=== PATIENT | male | born 1990 | race Caucasian/White ===

== ENCOUNTER 2018-03-10 23:39 | Emergency (ER) | payer OTHER ==
[2018-03-10] MEDS ORDERED: 0.9 % SODIUM CHLORIDE 1,000 ML IV ONE (23:58)
--- NOTE | 2018-03-10 23:58 | ED Physician Documentation ---
Overdose - HISTORIAN Historian: patient - HPI Stated Complaint: possible overdose Chief Complaint: Overdose Onset: minutes (30) Duration: sudden onset Intent: suicide (for a split second he said he want to but is now regretful and angry with himself and does not want to and he states it was once instance and he over did it. ) Severity: mild Situational Problems: Yes (he states his gf might be cheating ) Further Comments: yes (He states he learned his gf might be cheating so he took "some tylenol and ibuprofen and drank a few beers and wine" He states he "for a split second wanted to " and states "I was instantly regretful about taking the meds" He is not sure how many he took. He states he drank the liquour on top of the meds to help himself vomit (which he did not vomit) He denies any symptoms currently "I feel normal" but states he is angry with himself for taking the pills. States he watched his mom attempt suicide a lot and is not wanting this for himself) - Associated Symptoms Symptoms: angry (about his actions he is upset over his gf) Suicidal: gesture, attempt. denies: suicidal thoughts, specific plan Ingestion: accidental (feels now he was not really trying to kill himself ) Mechanism: overdose - ROS CONST: none NEURO/PSYCH: depression (just over this situation tonight ) - PAST HX Psychiatric problems: denies: bipolar disorder, depression, prior suicide attempt DVT/PE Risk Factors: none, other (chronic back pain ) Surgical History: no surgical history Immunizations: UTD Allergies/Adverse Reactions: Allergies Allergy/AdvReac Type Severity Reaction Status Date / Time No Known Allergies Allergy Verified 03/11/18 00:16 Home Medications: Ambulatory Orders Medication Instructions Recorded NK [NK] 03/11/18 - Social HX Smoking History: cigarettes Marital Status: single Drug Use: none - Family HX Family HX: mental illness (mom ) - VITAL SIGNS Vital Signs: Vital Signs Temp Pulse Resp BP Pulse Ox 98 F 71 20 118/76 98 03/10/18 23:40 03/10/18 23:40 03/10/18 23:40 03/10/18 23:40 03/10/18 23:40 - REVIEWED ASSESSMENTS Nursing Assessment Reviewed: Yes Vitals Reviewed: Yes Progress - Progress Progress: 0300: Sleeping soundly - wakes easily. VS stable DG 0330: Labs drawn DG 0350: pt aware of results. He denies any complaints. Denies any GI upset, no dizziness, no nausea He is not suicidal. He does not wish self harm. He is no in need of further services. Poison Control aware DG ED Results Lab/Radiology - Lab Results Lab Results: Lab Results 03/11/18 03/11/18 03/11/18 03:38 00:09 00:09 WBC 8.50 K/ul K/ul (4.00-12.00) RBC 4.57 M/ul M/ul (3.90-5.20) Hgb 14.2 g/dL g/dL (12.0-18.0) Hct 42.2 % % (37.0-53.0) MCV 92.4 fl fl (80.0-100.0) MCH 31.2 pg pg (28.0-34.0) MCHC 33.7 g/dL g/dL (30.0-36.0) RDW 12.8 % % (11.3-14.3) Plt Count 254 K/mm3 K/mm3 (130-400) Neut % (Auto) 60.2 % % (39.0-79.0) Lymph % (Auto) 26.8 % % (16.0-50.0) [place]oke % (Auto) 6.6 % % (0.0-11.0) Eos % (Auto) 4.5 % % (0.0-6.8) Baso % (Auto) 0.4 (0.0-1.5) Neut # (Auto) 5.1 # k/uL # k/uL (1.4-7.7) Lymph # (Auto) 2.3 # k/uL # k/uL (0.6-4.0) [place]oke # (Auto) 0.6 # k/uL # k/uL (0.0-0.9) Eos # (Auto) 0.4 # k/uL # k/uL (0.0-0.6) Baso # (Auto) 0.0 # k/uL # k/uL (0.0-0.5) Reactive Lymphs % 1.5 % % (0.0-5.0) Reactive Lymphs # 0.1 # k/uL # k/uL (0.0-0.8) Sodium 140 mmol/L mmol/L (136-145) Potassium 3.4 mmol/L L mmol/L (3.5-5.1) Chloride 104 mmol/L mmol/L (98-107) Carbon Dioxide 25 mmol/L mmol/L (22-30) BUN 14 mg/dL mg/dL (9-20) Creatinine 1.20 mg/dL mg/dL (0.66-1.25) Estimated Creat Clear 90 Est GFR ( Amer) > 60 (60 - ) Est GFR (Non-Af Amer) > 60 (60 - ) Glucose 90 mg/dL mg/dL (74-106) Calcium 9.5 mg/dL mg/dL (8.4-10.2) Total Bilirubin 0.4 mg/dL mg/dL (0.2-1.3) AST 36 U/L U/L (15-46) ALT 30 U/L U/L (13-69) Alkaline Phosphatase 51 U/L U/L (38-126) Creatine Kinase 343 U/L H U/L (55-170) Total Protein 7.7 g/dL g/dL (6.3-8.2) Albumin 4.8 g/dL g/dL (3.5-5.0) Acetaminophen 54.0 ug/mL H ug/mL 38.0 ug/mL H ug/mL (10-30) (10-30) Ethyl Alcohol 35.2 mg/dL H mg/dL (0.0-10.0) - Orders Orders: ED Orders Category Date Time Status Place IV Lock 1T Care 03/11/18 00:05 Active ACETAMINOPHEN LEVEL Routine Lab 03/11/18 00:09 Completed ACETAMINOPHEN LEVEL Stat Lab 03/11/18 03:38 Completed ALCOHOL MEDICAL USE ONLY Routine Lab 03/11/18 00:09 Completed CBC/PLATELET/DIFF Routine Lab 03/11/18 00:09 Completed CMP Routine Lab 03/11/18 00:09 Completed CREATINE KINASE Routine Lab 03/11/18 00:09 Completed DRUG SCREEN URINE MEDICAL ONLY Routine Lab 03/11/18 Ordered SALICYLATE LEVEL Routine Lab 03/11/18 00:09 Received 0.9 % Sodium Chloride [Normal Saline] 1,000 ml Med 03/10/18 23:58 Discontinued IV .STK-MED 0.9 % Sodium Chloride [Normal Saline] 1,000 ml Med 03/11/18 00:30 Ordered IV Q10H EKG WITH COMPARISON Stat Ther 03/11/18 Ordered Overdose Physical Exam - Physical Exam General Appearance: no acute distress, alert, mild distress (crying during discussion ) ENT: nml ENT inspection, pharynx nml Eyes: PERRL Mental Status: tearful, mood/affect nml, depressed affect / mood (he reports only upset over situation ). No: suicidal ideation Suicide Attempts: admit (during the moment he want to harm himself but states he knows better than that and he does not wish self harm ) Orientation: nml x3 Cranial Nerves: CN's intact as tested Sensory, Motor: nml motor response, nml sensory response, nml reflexes, nml gait Neck: normal inspection Respiratory: no resp distress, chest non-tender, breath sounds normal CVS: reg rate & rhythm, heart sounds normal, equal pulses, no murmur Abdomen: non-tender, nml bowel sounds, no distention Skin: warm/dry, normal color Extremities: non-tender, normal range of motion, no evidence of injury, no edema Discharge Clincal Impression: Ingested substance, unknown drug Qualifiers: Encounter type: initial encounter Injury intent: undetermined intent Qualified Code(s): T50.904A - Poisoning by unspecified drugs, medicaments and biological substances, undetermined, initial encounter Additional Instructions: 1. No tylenol or ibuprofen 2. Follow up with PCP Monday 3. National Suicide Prevention Lifeline Call Available 24 hours everyday 4. Return to ER or 911 for any concerns Condition: Stable Disposition: 01 HOME, SELF-CARE Decision to Admit: NO Date of Decison to Admit: 03/11/18 Decision Time: 04:00
[2018-03-11 00:17] LABS: BASOPHILS % 0.4 (0.0-1.5); EOSINOPHILS % 4.5 % (0.0-6.8); MEAN CORPUSCULAR HEMOGLOBIN 31.2 pg (28.0-34.0); MEAN CORPUSCULAR VOLUME 92.4 fl (80.0-100.0); MONOCYTES % 6.6 % (0.0-11.0); NEUTROPHILS # 5.1 # k/uL (1.4-7.7)
[2018-03-11 00:28] LABS: eGFR (African) > 60; eGFR (Non-African) > 60
[2018-03-11] MEDS: 0.9 % SODIUM CHLORIDE 1,000 ML IV SCH ×2 (00:31→01:00)
[2018-03-11] MEDS ORDERED: 0.9 % SODIUM CHLORIDE 1,000 ML IV ONE (00:50)
[2018-03-11 04:22] VITALS: BP 124/75
[2018-03-11 07:38] LABS: CANNABINOIDS NON NEGATIVE ng/mL (< 50); METHYLENEDIOXYMETHAMPHETAMINE NEGATIVE ng/mL (<500)
[2018-03-11 07:39] LABS: COLOR,URINE YELLOW (YELLOW)
[2018-03-11 07:40] LABS: APPEARANCE,URINE CLEAR (CLEAR); OCCULT BLOOD,URINE NEGATIVE (NEGATIVE); PH URINE 5.5 (5.0 - 8.0); UROBILINOGEN URINE 0.2 Eu (0.2-1.0)
== END 2018-03-11 04:20 | disposition home or self-care (01) ==
LOC: ED 23:39
DX: T50.904A Poisoning by unspecified drugs, medicaments and biological substances, undetermined, initial encounter (principal); X58.XXXA Exposure to other specified factors, initial encounter; Y92.9 Unspecified place or not applicable; Y93.9 Activity, unspecified; Y99.9 Unspecified external cause status
CPT/HCPCS: 80053; 80320; 80377; 81002; 82550; 85025; J7030; 96365; 96366; 99284; G0480; G0481; S1016